=== PATIENT | female | born 1955 | race Two or more races ===

== ENCOUNTER 2017-02-18 07:24 | Day surgery (SDC) | payer MEDICAID ==
[2017-02-18] VITALS (24 sets, daily range): BP systolic 96–122; BP diastolic 45–58; PULSE 68–82; RESP 14–23; Ht 154.9 cm; Wt 62.5 kg
[~2017-02-18] VITALS: Ht 154.9 cm; Wt 62.5 kg
[2017-02-18] MEDS ORDERED: SOD CHLORIDE 0.9% 1,000 ML IV SCH (10:30)
[2017-02-18] MEDS ORDERED: CEFAZOLIN 1 GM/50 ML (PMX) 50 ML IVPB ONE ×2 (10:30→12:40)
[2017-02-18] MEDS ORDERED: POLYMYXIN/BACITRACIN 1L IRRIG IRR ONE ×2 (10:30→13:00)
[2017-02-18] MEDS ORDERED: HEPARIN 1000 UNITS/ML 10 ML INJ ONE (12:39)
[2017-02-18] MEDS ORDERED: LIDOCAINE 1% (MDV) 20 ML INJ ONE (12:39)
[2017-02-18] MEDS ORDERED: SOD CHLORIDE 0.9% 500 ML ONE (12:40)
[2017-02-18] MEDS ORDERED: FENTAnyl 50 MCG/ML VIAL ONE (12:40)
[2017-02-18] MEDS ORDERED: MIDAZOLAM 1 MG/ML 2 ML INJ ONE (12:40)
[2017-02-18] MEDS ORDERED: LIDOCAINE 2%/EPI MPF (SDV) 20 ML VIAL INJ ONE (13:00)
[2017-02-18] MEDS ORDERED: HYDROCODONE/APAP (5/325) TAB PO PRN (15:30)
--- NOTE | 2017-02-18 15:36 | RADRPT ---
PROCEDURE: Ultrasound guidance for placement of needle in left pleural space. CLINICAL INDICATION: Left pleural effusion. TECHNIQUE: Prior to the procedure, informed consent was obtained. Risks including bleeding, infection, and pneu mothorax were explained to the patient. The patient understood and was willing to proceed. A procedu ral pause was performed. The patient's name, date of , and procedure to be performed were verif ied. The needle was inserted with all elements of maximal sterile barrier technique. All of the foll owing were used: head covering, facial mask, sterile gown, sterile gloves, a large sterile sheet, velázquez nd hygiene, and 2% chlorhexidine for cutaneous antisepsis. The left lateral chest wall was prepped and draped in usual sterile fashion. Limited sonography of the left lateral chest was then performed. Noted is a left pleural effusion. U ltrasound images were recorded and stored in the patient's medical record. Following the local injection of Xylocaine, the left pleural space at the site of the pleural effusi on was punctured under sonographic guidance with a 5-Amharic Yueh needle and pleural fluid was aspira jeremias. The patient tolerated the procedure well. The remainder of the procedure was performed and di ctated under separate cover. COMPARISON: None. FINDINGS: The ultrasound images demonstrate a left pleural effusion. The subsequent images demonstrate the ne edle entering the left pleural space. IMPRESSION: 1. Ultrasound guidance for a needle placement in left pleural space. RPTAT: QQ .Vlad Pulido MD, Date Time Electronically viewed and signed by .Vlad Pulido MD, MD on 02/18/2017 15:36 .R/
--- NOTE | 2017-02-18 15:37 | RADRPT ---
PROCEDURE: FLUOROSCOPIC AND ULTRASONOGRAPHIC-GUIDED PLACEMENT OF LEFT CHEST PORT. CLINICAL INDICATION: History of right breast cancer. Venous access for chemotherapy. TECHNIQUE: INTRAPROCEDURE MEDICATIONS: PB antibiotic solution 40 cc applied topically. 1 gram Ancef intravenous ly, intra-op. IV Versed and Fentanyl per protocol. TECHNIQUE: Informed consent was obtained. The procedure, risks, benefits, complications and alternat nataliia were explained to the patient. Risks including bleeding, infection, and pneumothorax were expl ained. The patient understood and was willing to proceed. A procedural pause was performed. The patient's name, date of , and procedure to be performed w ere verified. The central line was inserted with all elements of maximal sterile barrier technique. All of the fol lowing were used: head covering, facial mask, sterile gown, sterile gloves, a large sterile sheet, h and hygiene, and 2% chlorhexidine for cutaneous antisepsis. The left neck and anterior/superior chest wall were prepped and draped in usual sterile fashion. Limited sonography of the left neck was then performed. Noted is a patent left internal jugular vein . Following the local injection of 1% lidocaine, the left internal jugular vein was punctured under so nographic guidance with a 20-gauge needle through which a 0.018 inch floppy tip guidewire was advanc ed into the superior vena cava with fluoroscopic guidance. The tract was dilated to 5 Canadian and t he wire was then replaced with a 0.035 in Glidewire. Serial dilatation was then performed and a 7 F rench peel away sheath was introduced. A site just inferior to the clavicle in the superior anterior left chest wall was localized. One per cent lidocaine was used as local anesthesia. A transverse 3 cm incision was made utilizing a 15 blad e scalpel. Utilizing blunt dissection a subcutaneous pocket was created inferior to the incision. Th e cavity was flushed with approximately 40 cc of PB antibiotic solution. The catheter was tunneled underneath the skin from the newly created pocket to the puncture site in the neck. The central line catheter was pulled through the tract. The catheter was then advanced thr ough the sheath until the tip was positioned in the right atrium. The peel-away sheath was removed. The catheter was flushed and clamped. The catheter was then connected to the 6.6 Canadian [employer] power port. The port was then placed into the pocket. Prior to closing the instrument and sponge count was verified and was correct. The subcutaneous tissue was closed with 3-0 Vicryl interrupted suture. The skin at the site of the pock et and in the neck was closed with 4-0 Vicryl suture in a running subcuticular technique. The port w as flushed with 2000 units of heparin in 2 cc utilizing a Matias needle. The needle was removed. A dr essing was applied. The patient tolerated procedure well. COMPARISON: None. FINDINGS: Ultrasound images were recorded and stored in the patient's medical record. Final radiographic images demonstrate the tip of the catheter in the upper right atrium. A total of 0.4 minutes of fluoroscopy time was used. The ultrasound images demonstrate the needle entering th e jugular vein. IMPRESSION: 1. Successful ultrasonographic and fluoroscopic guided placement of left chest port. RPTAT: QQ .Vlad Pulido MD, MD Date Time Electronically viewed and signed by .Vlad Pulido MD, on 02/18/2017 15:36 .R/
== END 2017-02-18 17:48 | disposition home or self-care (01) ==
LOC: SDS 07:24
PROVIDERS: ATTEND Internal Medicine Hematology & Oncology
DX: C50.911 Malignant neoplasm of unspecified site of right female breast (principal)
CPT/HCPCS: 36561; 76942; C1788; J0690; J1644; J2250; J3010; J7040; Z7610